=== PATIENT | female | born 1975 | race Caucasian/White ===

== ENCOUNTER → 2021-03-05 14:45 | Outpatient (BNVA) | payer MEDICARE, MEDICAID, SELFPAY | PROVIDERS: Referring Provider Nurse Practitioner Family; Visit Provider Orthopaedic Surgery | DX: M25.562 Pain in left knee (principal) | CPT/HCPCS: 73560; 73565 ==

== ENCOUNTER 2021-07-18 10:42 | Outpatient (CLI) | payer MEDICARE, MEDICAID, SELFPAY ==
--- NOTE | 2021-07-18 10:57 | MM_ITS ---
WS: [id number] BILATERAL 3D TOMOSYNTHESIS DIGITAL DIAGNOSTIC MAMMOGRAPHY WITH CAD CLINICAL INFORMATION: LT BREAST LUMP COMPARISON: None. TECHNIQUE: Bilateral CC, MLO, and ML views. FINDINGS: The breasts are composed of heterogeneous fibroglandular density, which can limit the detection of sm all underlying mass lesions. Biopsy clip LEFT breast. A few incidental punctate calcifications. Palpa ble marker LEFT areola. No definite mammographic abnormalities deep to the palpable marker. Ultrasoun d is pending. RIGHT breast is unremarkable. ULTRASOUND BREAST LEFT TECHNIQUE: Ultrasound LEFT breast focused area of concern. CLINICAL INFORMATION: LT BREAST LUMP COMPARISON: None. FINDINGS: Ultrasound LEFT breast at the areola. In the area of palpable concern, at the 5:00 position, is an ec hogenic nodule measuring approximately 7 mm. This most likely represents lipoma or fibroadenolipoma. Considering new palpable nature and lack of comparisons, recommend ultrasound-guided biopsy for defin itive evaluation. MM/[place] [id number] IMPRESSION: BI-RADS: 4-Suspicious Finding-Biopsy Should Be Considered FOLLOW UP: US Guided Biopsy Recommended
--- NOTE | 2021-07-18 11:30 | US_ITS ---
WS: [id number] BILATERAL 3D TOMOSYNTHESIS DIGITAL DIAGNOSTIC MAMMOGRAPHY WITH CAD CLINICAL INFORMATION: LT BREAST LUMP COMPARISON: None. TECHNIQUE: Bilateral CC, MLO, and ML views. FINDINGS: The breasts are composed of heterogeneous fibroglandular density, which can limit the detection of sm all underlying mass lesions. Biopsy clip LEFT breast. A few incidental punctate calcifications. Palpa ble marker LEFT areola. No definite mammographic abnormalities deep to the palpable marker. Ultrasoun d is pending. RIGHT breast is unremarkable. ULTRASOUND BREAST LEFT TECHNIQUE: Ultrasound LEFT breast focused area of concern. CLINICAL INFORMATION: LT BREAST LUMP COMPARISON: None. FINDINGS: Ultrasound LEFT breast at the areola. In the area of palpable concern, at the 5:00 position, is an ec hogenic nodule measuring approximately 7 mm. This most likely represents lipoma or fibroadenolipoma. Considering new palpable nature and lack of comparisons, recommend ultrasound-guided biopsy for defin itive evaluation. US/US breast LT limited* [id number] IMPRESSION: BI-RADS: 4-Suspicious Finding-Biopsy Should Be Considered FOLLOW UP: US Guided Biopsy Recommended
== END 2021-07-18 10:43 | disposition home or self-care (01) ==
LOC: RAD 10:45
PROVIDERS: Visit Provider Nurse Practitioner Family
DX: N63.23 Unspecified lump in the left breast, lower outer quadrant (principal)
CPT/HCPCS: 76642; 77062